=== PATIENT | female | born 1960 | race African-American/Black ===

== ENCOUNTER → 2017-09-05 | Outpatient (CLI) | payer MEDICARE | END | disposition home or self-care (01) | LOC: KCIC MRI 08:26 | DX: S83.241A Other tear of medial meniscus, current injury, right knee, initial encounter (principal); M22.41 Chondromalacia patellae, right knee; M25.461 Effusion, right knee; R60.0 Localized edema; X58.XXXA Exposure to other specified factors, initial encounter; Y93.89 Activity, other specified; Y92.89 Other specified places as the place of occurrence of the external cause; Y99.8 Other external cause status | CPT/HCPCS: 73721 ==

== ENCOUNTER 2017-10-14 19:24 | Emergency (ER) | payer MEDICARE ==
[2017-10-14 21:05] LABS: AGAP ISTAT 16 mmol/L (6-14); BUN ISTAT 10 mg/dL (8-26); CHLORIDE ISTAT 97 mmol/L (98-110); CREATININE ISTAT 0.7 mg/dL (0.5-1.4); GLUCOSE ISTAT 128 mg/dL (70-99); HEMATOCRIT ISTAT 42 % (36-40); HEMOGLOBIN ISTAT 14.3 g/dL (12-15); ION CA ISTAT 1.16 mmol/L (1.13-1.32); POTASSIUM ISTAT 3.6 mmol/L (3.5-5.0); SODIUM ISTAT 137 mmol/L (135-145); TOT CO2 ISTAT 28 mmol/L (23-32)
== END 2017-10-14 21:21 | disposition home or self-care (01) ==
LOC: ER 19:24
DX: S86.812A Strain of other muscle(s) and tendon(s) at lower leg level, left leg, initial encounter (principal); I10 Essential (primary) hypertension; Z88.1 Allergy status to other antibiotic agents; X58.XXXA Exposure to other specified factors, initial encounter; Y93.89 Activity, other specified; Y99.8 Other external cause status; Y92.89 Other specified places as the place of occurrence of the external cause
CPT/HCPCS: 36415; 80047; 85014; 85018; 93971; 99284-25

== ENCOUNTER → 2018-02-13 | Day surgery (SDC) | payer MEDICARE ==
[~2018-02-13] MED LIST: CLINDAMYCIN 600MG PREMIX 50 ML IV; DESFLURANE 31 TO 60 MINUTES IH; DEXAMETHASONE SOD PHOS 20 MG/5 ML VIAL.; FAMOTIDINE 20 MG/2 ML VIAL; LIDOCAINE 1% PF 2 ML VIAL. ID; LIDOCAINE 2% PF Vial for OR 5 ML VIAL.; MORPHINE SULFATE 2 MG/ML DISP.SYRIN. IV; ONDANSETRON PF 4 MG/2 ML VIAL.; ONDANSETRON PF 4 MG/2 ML VIAL. IV; PROCHLORPERAZINE 10 MG/2 ML VIAL. IV; PROPOFOL 20 ML IV; SEVOFLURANE > 120 MINUTES. IH; SUCCINYLCHOLINE 200 MG/10 ML VIAL.; ceFAZolin 2GM PREMIX 2 GM/50 ML BAG IV; fentaNYL PF VIAL 100 MCG/2 ML VIAL; fentaNYL PF VIAL 100 MCG/2 ML VIAL IV
[2018-02-13] MEDS: IV RINGERS,LACTATED 1000ML 1,000 ML IV (13:52)
[2018-02-13] MEDS: CLINDAMYCIN 900MG PREMIX 50 ML IV (15:53)
[2018-02-13] MEDS: BUPIVACAINE-EPI 0.25%-1:200000 50 ML VIAL. (16:08)
[2018-02-13] MEDS: EPINEPHrine VIAL 30 MG/30 ML VIAL (16:08)
[2018-02-13 16:59] LABS: ANION GAP 8 (6-14); BLOOD UREA NITROGEN 11 mg/dL (7-20); CALCIUM 9.5 mg/dL (8.5-10.1); CARBON DIOXIDE 30 mmol/L (21-32); CHLORIDE 101 mmol/L (98-107); CREATININE 0.7 mg/dL (0.6-1.0); GLUCOSE 82 mg/dL (70-99); POTASSIUM 3.2 mmol/L (3.5-5.1); SODIUM 139 mmol/L (136-145)
[2018-02-13] MEDS: fentaNYL PF VIAL 100 MCG/2 ML VIAL IV ×2 (17:17→17:35)
[2018-02-13] MEDS: HYDROcodone/APAP 7.5/325MG 1 TAB TABLET PO (18:06)
== END ==
LOC: SURG 13:00
DX: M23.341 Other meniscus derangements, anterior horn of lateral meniscus, right knee (principal); M23.351 Other meniscus derangements, posterior horn of lateral meniscus, right knee; M23.321 Other meniscus derangements, posterior horn of medial meniscus, right knee; M23.41 Loose body in knee, right knee; M94.261 Chondromalacia, right knee; I10 Essential (primary) hypertension; F41.9 Anxiety disorder, unspecified; F07.81 Postconcussional syndrome; M19.90 Unspecified osteoarthritis, unspecified site; E66.01 Morbid (severe) obesity due to excess calories; Z68.43 Body mass index [BMI] 50.0-59.9, adult; Z98.890 Other specified postprocedural states; Z88.1 Allergy status to other antibiotic agents; Z88.0 Allergy status to penicillin; Z90.710 Acquired absence of both cervix and uterus; Z79.899 Other long term (current) drug therapy; Z82.3 Family history of stroke; Z82.49 Family history of ischemic heart disease and other diseases of the circulatory system
CPT/HCPCS: 29880; 36415; 80048; A7015; J0171; J0330; J0690; J1100; J2001; J2405; J2704; J3010; J3490; S0028

== ENCOUNTER → 2018-06-08 | Outpatient (CLI) | payer MEDICARE ==
[2018-02-13 18:50] VITALS: BP 135/73
[~2018-06-08] MED LIST changes: +ALPR0.257 PO; +ASPI325T8 PO; +ASPI81TA50 PO; -CLINDAMYCIN 600MG PREMIX 50 ML IV; +CYAN100070 PO; -DESFLURANE 31 TO 60 MINUTES IH; -DEXAMETHASONE SOD PHOS 20 MG/5 ML VIAL.; -FAMOTIDINE 20 MG/2 ML VIAL; +FERR325C PO; -LIDOCAINE 1% PF 2 ML VIAL. ID; -LIDOCAINE 2% PF Vial for OR 5 ML VIAL.; +LORA5SOL43 PO; +MEDR10TA3 PO; +METO-269 PO; -MORPHINE SULFATE 2 MG/ML DISP.SYRIN. IV; +NAPR220T70 PO; -ONDANSETRON PF 4 MG/2 ML VIAL.; -ONDANSETRON PF 4 MG/2 ML VIAL. IV; +POLY500P13 MC; -PROCHLORPERAZINE 10 MG/2 ML VIAL. IV; -PROPOFOL 20 ML IV; -SEVOFLURANE > 120 MINUTES. IH; -SUCCINYLCHOLINE 200 MG/10 ML VIAL.; +TRIA1TAB5 PO; +[UNRECOGNIZED DRUG - CODE] PO; -ceFAZolin 2GM PREMIX 2 GM/50 ML BAG IV; -fentaNYL PF VIAL 100 MCG/2 ML VIAL; -fentaNYL PF VIAL 100 MCG/2 ML VIAL IV
--- NOTE | 2018-06-08 15:58 | RAD ---
Right Lower Extremity Venous Doppler Ultrasound Indication: Right knee arthroscopy. Right lower extremity pain and swelling. Comparison: None. Procedure: Color Doppler, spectral Doppler, and grayscale images with and without compression are obtained in the area of the common femoral vein, superficial femoral vein - femoral vein junction, main femoral vein (superficial femoral vein) and popliteal vein. Veins of the proximal calf are also imaged. Findings: There is normal duplex flow, color flow and compressibility of all visualized vein segments. There is no evidence of deep venous thrombosis. Impression: No evidence of right lower extremity deep venous thrombosis. Electronically signed by: Champ Steel MD (06/08/2018 3:55 PM) [place] [id number]
== END | disposition home or self-care (01) ==
LOC: US 14:36
PROVIDERS: ATTEND Orthopaedic Surgery
DX: M79.604 Pain in right leg (principal); R22.41 Localized swelling, mass and lump, right lower limb; Z98.890 Other specified postprocedural states
CPT/HCPCS: 93971

== ENCOUNTER → 2018-06-26 | Outpatient (CLI) | payer MEDICARE ==
[2018-02-13 18:50] VITALS: BP 135/73
[~2018-06-26] MED LIST changes: +CHOL20002 PO; -[UNRECOGNIZED DRUG - CODE] PO
--- NOTE | 2018-06-26 10:26 | KCIC ---
Examination: MRI of the right knee without contrast HISTORY: History of right knee pain COMPARISON: 09/05/2017 TECHNIQUE: Multiplanar, multisequence MR imaging of the right knee was performed without contrast FINDINGS: The anterior cruciate ligament, posterior cruciate ligament are intact. There is attenuated appearance of the body and posterior horn of the medial meniscus likely postsurgical changes. There is faint medial extrusion of the medial meniscus. There is attenuated appearance of the body of the lateral meniscus with the oblique increased olivarez signal in the posterior horn of the lateral meniscus, best visualized on series 6 image #20 again identified could be degenerative tear. The extensor mechanism is intact. Moderate knee joint effusion is identified There is complete cartilage loss identified in the weightbearing portion and the posterior flexion zone of the medial compartment. There is fissuring of cartilage identified in the weightbearing portion of the lateral compartment. There is fissuring of cartilage identified in the patellar femoral compartment. The medial, lateral retinaculum are intact. Faint increased T2 signal identified in the weightbearing portion of the medial tibial plateau and the lateral third tibial plateau likely trabecular edema. The medial collateral ligament is intact. The lateral collateral ligamentous complex including the fibular collateral ligament, biceps femoris tendon, popliteus tendon appear intact. Mild increased T2 signal identified about the lateral collateral ligamentous complex. Moderate joint space loss identified in the medial, lateral, patellofemoral compartments. There is a small 5 mm degenerative cyst or old osteochondral defect identified in the posterior medial condyle. IMPRESSION: 1. Attenuated appearance of the body and posterior horn of the medial meniscus probably postsurgical. There is faint medial extrusion of the medial meniscus. 2. There is attenuated appearance of the body of the lateral meniscus could be postsurgical with oblique increased signal identified in the posterior horn of the lateral meniscus could be degenerative. 3. Moderate knee joint effusion. 4. 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 Electronically signed by: Angel Chapa MD (06/26/2018 10:22 AM) [id number]
== END | disposition home or self-care (01) ==
LOC: KCIC MRI 07:41
PROVIDERS: ATTEND Orthopaedic Surgery
DX: M22.41 Chondromalacia patellae, right knee (principal); M25.461 Effusion, right knee; M17.11 Unilateral primary osteoarthritis, right knee
CPT/HCPCS: 73721

== ENCOUNTER 2018-09-24 18:37 | Observation (INO) | payer BC ==
[~2018-09-24] VITALS: Ht 160 cm; Wt 137.0 kg
[~2018-09-24 18:37] MED LIST changes: -POLY500P13 MC; +POLY500P13 PO
--- NOTE | 2018-09-24 20:24 | RAD ---
CHEST PA LATERAL CLINICAL INDICATION: palpitations COMPARISON: None FINDINGS: Heart is normal in size. Lungs are clear. No pneumothorax or pleural effusion. Visualized bony thorax within normal limits. IMPRESSION: No acute pulmonary process. Electronically signed by: Kal Mata DO (09/24/2018 8:21 PM) [facility]
[2018-09-24 20:37] LABS: BASO % 0 % (0-3); EOS # 0.1 x10^3/uL (0.0-0.7); EOS % 2 % (0-3); HEMATOCRIT 39.4 % (36.0-47.0); HEMOGLOBIN 12.6 g/dL (12.0-15.5); LYMPH # 1.7 x10^3/uL (1.0-4.8); LYMPH % 27 % (24-48); MEAN CORPUSCULAR HEMOGLOBIN 29 pg (25-35); MEAN CORPUSCULAR HGB CONC 32 g/dL (31-37); MEAN CORPUSCULAR VOLUME 90 fL (79-100); MONO # 0.6 x10^3/uL (0.0-1.1); MONO % 9 % (0-9); NEUT # 3.9 x10^3uL (1.8-7.7); NEUT % 61 % (31-73); PLATELET COUNT 379 x10^3/uL (140-400); WHITE BLOOD COUNT 6.3 x10^3/uL (4.0-11.0)
[2018-09-24 20:46] LABS: CALCIUM 9.9 mg/dL (8.5-10.1); CREATININE 0.6 mg/dL (0.6-1.0); GFR 123.8
[2018-09-24 20:52] LABS: ALBUMIN 4.2 g/dL (3.4-5.0); ALBUMIN/GLOBULIN RATIO 0.9 (1.0-1.7); MAGNESIUM 2.1 mg/dL (1.8-2.4); TOTAL BILIRUBIN 0.3 mg/dL (0.2-1.0)
[2018-09-24] MEDS ORDERED: MORPHINE SULFATE 4 MG/ML VIAL. IV PRN (21:00)
[2018-09-24] MEDS ORDERED: ONDANSETRON PF 4 MG/2 ML VIAL. IV PRN (21:00)
[2018-09-24 21:14] LABS: BILIRUBIN,URINE NEGATIVE (NEG); CLARITY,URINE CLEAR; COLOR,URINE YELLOW; NITRITE,URINE NEGATIVE (NEG); PH,URINE 6.5; PROTEIN,URINE NEGATIVE (NEG-TRACE)
[2018-09-24 21:19] LABS: BACTERIA,URINE FEW /HPF (0-FEW); RBC,URINE 0 /HPF (0-2); SQUAMOUS EPITHELIAL CELL,UR OCC /LPF; WBC,URINE OCC /HPF (0-4)
[2018-09-24 22:23] VITALS: BP 151/73
[2018-09-24] MEDS ORDERED: FERR325T14 PO (22:45)
[2018-09-24] MEDS ORDERED: ALPRAZolam 0.25 MG TABLET PO PRN (23:15)
[2018-09-24] MEDS ORDERED: METOPROLOL SUCCINATE 50 MG PO SCH (23:30)
[2018-09-24] MEDS: IV NORMAL SALINE 1000ML BAG 1,000 ML IV SCH (23:41)
--- NOTE | 2018-09-25 00:28 | NUR ---
Patient admission Pt arrived to the unit at approximately 2223 via w/c from the ED. Pt's mother at bedside. Pt was oriented to room and unit routines. Patient information guide packet was explained and given to pt. All questions and concerns regarding pt's POC was address and answered. Pt made comfortable in bed. Will continue to monitor pt closely.
[2018-09-25] MEDS: IV NORMAL SALINE 1000ML BAG 1,000 ML IV SCH ×3 (01:02→08:21)
--- NOTE | 2018-09-25 01:13 | PHYS DOC ---
Past Medical History Past Medical History: Hypertension Past Surgical History: Additional Past Surgical Histo: FOOT SX Alcohol Use: None Drug Use: None Adult General Chief Complaint Chief Complaint: Palpitations HPI HPI Patient is a 58 year old female who presents with a feeling of palpitations at home. The patient states that she was using her wrist blood pressure cuff and it kept giving her an error saying that she was having an irregular heart rhythm. The patient states that she has had what she is calling palpitations in the past. On the monitor when she's having that feeling it is showing a PVC. She denies any new medications. She states that she takes metoprolol. 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 She denies chest pain or shortness of air but states that she has been having fatigue recently. Review of Systems Review of Systems Constitutional: Denies fever or chills [] Eyes: Denies change in visual acuity, redness, or eye pain [] HENT: Denies nasal congestion or sore throat [] Respiratory: Denies cough or shortness of breath [] Cardiovascular: No additional information not addressed in HPI [] GI: Denies abdominal pain, nausea, vomiting, bloody stools or diarrhea [] : Denies dysuria or hematuria [] Musculoskeletal: Denies back pain or joint pain [] Integument: Denies rash or skin lesions [] Neurologic: Denies headache, focal weakness or sensory changes [] Endocrine: Denies polyuria or polydipsia [] All other systems were reviewed and found to be within normal limits, except as documented in this note. Allergies Allergies Allergies Coded Allergies Type Severity Reaction Last Updated Verified amoxicillin Adverse Reaction Intermediate Diarrhea 02/13/18 Yes Physical Exam Physical Exam Constitutional: Well developed, well nourished, no acute distress, non-toxic appearance. [] HENT: Normocephalic, atraumatic, bilateral external ears normal, oropharynx moist, no oral exudates, nose normal. [] Eyes: PERRLA, EOMI, conjunctiva normal, no discharge. [] Neck: Normal range of motion, no tenderness, supple, no stridor. [] Cardiovascular:Heart rate regular rhythm with PVCs noted, no murmur [] Lungs & Thorax: Bilateral breath sounds clear to auscultation [] Abdomen: Bowel sounds normal, soft, no tenderness, no masses, no pulsatile masses. [] Skin: Warm, dry, no erythema, no rash. [] Back: No tenderness, no CVA tenderness. [] Extremities: No tenderness, no cyanosis, no clubbing, ROM intact, no edema. [] Neurologic: Alert and oriented X 3, normal motor function, normal sensory function, no focal deficits noted. [] Psychologic: Affect normal, judgement normal, mood normal. [] Current Patient Data Vital Signs Vital Signs Date Time Temp Pulse Resp B/P (MAP) Pulse Ox O2 Delivery O2 Flow Rate FiO2 09/24/18 20:39 72 18 146/67 (93) 97 Room Air 09/24/18 19:19 98.6 98.6 Lab Values Laboratory Tests Test 09/24/18 20:26 White Blood Count 6.3 x10^3/uL (4.0-11.0) Red Blood Count 4.40 x10^6/uL (3.50-5.40) Hemoglobin 12.6 g/dL (12.0-15.5) Hematocrit 39.4 % (36.0-47.0) Mean Corpuscular Volume 90 fL (79-100) Mean Corpuscular Hemoglobin 29 pg (25-35) Mean Corpuscular Hemoglobin Concent 32 g/dL (31-37) Red Cell Distribution Width 15.0 % (11.5-14.5) H Platelet Count 379 x10^3/uL (140-400) Neutrophils (%) (Auto) 61 % (31-73) Lymphocytes (%) (Auto) 27 % (24-48) Monocytes (%) (Auto) 9 % (0-9) Eosinophils (%) (Auto) 2 % (0-3) Basophils (%) (Auto) 0 % (0-3) Neutrophils # (Auto) 3.9 x10^3uL (1.8-7.7) Lymphocytes # (Auto) 1.7 x10^3/uL (1.0-4.8) Monocytes # (Auto) 0.6 x10^3/uL (0.0-1.1) Eosinophils # (Auto) 0.1 x10^3/uL (0.0-0.7) Basophils # (Auto) 0.0 x10^3/uL (0.0-0.2) Urine Color Yellow Urine Clarity Clear Urine pH 6.5 Urine Specific [place] 1.015 Urine Protein Negative mg/dL (NEG-TRACE) Urine Glucose (UA) Negative mg/dL (NEG) Urine Ketones (Stick) Negative mg/dL (NEG) Urine Blood Negative (NEG) Urine Nitrite Negative (NEG) Urine Bilirubin Negative (NEG) Urine Urobilinogen Dipstick 1.0 mg/dL (0.2 mg/dL) Urine Leukocyte Esterase Negative (NEG) Urine RBC 0 /HPF (0-2) Urine WBC Occ /HPF (0-4) Urine Squamous Epithelial Cells Occ /LPF Urine Bacteria Few /HPF (0-FEW) Urine Mucus Slight /LPF Sodium Level 141 mmol/L (136-145) Potassium Level 4.0 mmol/L (3.5-5.1) Chloride Level 100 mmol/L (98-107) Carbon Dioxide Level 29 mmol/L (21-32) Anion Gap 12 (6-14) Blood Urea Nitrogen 13 mg/dL (7-20) Creatinine 0.6 mg/dL (0.6-1.0) Estimated GFR (Cockcroft-Gault) 123.8 BUN/Creatinine Ratio 22 (6-20) H Glucose Level 98 mg/dL (70-99) Calcium Level 9.9 mg/dL (8.5-10.1) Magnesium Level 2.1 mg/dL (1.8-2.4) Total Bilirubin 0.3 mg/dL (0.2-1.0) Aspartate Amino Transferase (AST) 20 U/L (15-37) Alanine Aminotransferase (ALT) 22 U/L (14-59) Alkaline Phosphatase 92 U/L (46-116) Creatine Kinase 142 U/L (26-192) Creatine Kinase MB (Mass) 1.4 ng/mL (0.0-3.6) Creatine Kinase MB Relative Index 1.0 % (0-4) Troponin I Quantitative < 0.017 ng/mL (0.000-0.055) Total Protein 9.0 g/dL (6.4-8.2) H Albumin 4.2 g/dL (3.4-5.0) Albumin/Globulin Ratio 0.9 (1.0-1.7) L Laboratory Tests 09/24/18 20:26 Laboratory Tests 09/24/18 20:26 EKG EKG [] Radiology/Procedures Radiology/Procedures [] Course & Med Decision Making Course & Med Decision Making Pertinent Labs and Imaging studies reviewed. (See chart for details) []The patient is being admitted to Dr. Wade's service observation for serial testing and a consultation with cardiology. Dragon Disclaimer Dragon Disclaimer This electronic medical record was generated, in whole or in part, using a voice recognition dictation system. Departure Departure Impression: Primary Impression: Palpitations Additional Impression: Fatigue Disposition: 09 ADMITTED INPATIENT Condition: GOOD Referrals: ALEKSEY NUNEZ (PCP) Problem Qualifiers NORMA BIRD APRN Sep 25, 2018 01:13
[2018-09-25 03:00] VITALS: BP 115/55
--- NOTE | 2018-09-25 05:39 | NUR ---
Pt's schedule 0530 NS was not administered at this time due to current bag still infusing.
[2018-09-25 06:01] LABS: CHOLESTEROL/HDL RATIO 3.2
[2018-09-25 07:00] VITALS: BP 117/60
[2018-09-25] MEDS ORDERED: CYANOCOBALAMIN (VITAMIN B-12) 1,000 MCG TABLET. PO SCH (09:00)
[2018-09-25] MEDS ORDERED: POLYETHYLENE GLYCOL 3350 17 GM PACKET. PO SCH (09:00)
[2018-09-25] MEDS ORDERED: TRIAMTERENE/HCTZ 37.5/25MG TABLET. PO SCH (09:00)
[2018-09-25] MEDS ORDERED: FERROUS SULFATE 325 MG TABLET. PO SCH (09:00)
[2018-09-25] MEDS ORDERED: CHOLECALCIFEROL (VITAMIN D3) 1,000 UNIT TABLET PO SCH (09:00)
--- NOTE | 2018-09-25 09:49 | PDOC1 ---
History and Physical Date of Admission Date of Admission DATE: 09/25/18 TIME: 09:49 Source Source: Chart review, Patient History of Present Illness History of Present Illness Ms Rob is a 58 year old female who presents with a feeling of palpitations at home. The patient states that she was using her wrist blood pressure cuff and it kept giving her an error saying that she was having an irregular heart rhythm. The patient states that she has had what she is calling palpitations in the past. On the monitor when she's having that feeling it is showing a PVC. She denies any new medications. She states that she takes metoprolol. She states that she was worked up by her website developer in the past and had a stress test and wore a monitor. She denies chest pain or shortness of air but states that she has been having fatigue recently. Past Medical History Cardiovascular: HTN, Other (palpitations) Psych: Anxiety Musculoskeletal: Osteoarthritis (right knee pain) Endocrine: No pertinent hx Family History Family History: Hypertension, Stroke Social History Smoke: No ALCOHOL: none Drugs: None Current Problem List Problem List Problems Medical Problems: (1) Palpitations Status: Acute Current Medications Current Medications Current Medications Ondansetron HCl (Zofran) 4 mg PRN Q8HRS PRN IV NAUSEA/VOMITING 1ST CHOICE; Start 09/24/18 at 21:00; Stop 09/25/18 at 20:59 Morphine Sulfate (Morphine Sulfate) 4 mg PRN Q2HR PRN IV SEVERE PAIN; Start at 21:00; Stop 09/25/18 at 20:59 Sodium Chloride 1,000 ml @ 125 mls/hr Q8H IV Last administered on 09/25/18at 08: 21; Start 09/24/18 at 21:30; Stop 09/25/18 at 21:29 Ferrous Sulfate (Feosol) 325 mg DAILY PO ; Start 09/25/18 at 09:00 Alprazolam (Xanax) 0.25 mg PRN DAILY PRN PO ANXIETY / AGITATION Last administered on 09/25/18at 01:00; Start 09/24/18 at 23:15 Vitamin D (Vitamin D3) 1,000 unit DAILY PO ; Start 09/25/18 at 09:00 Cyanocobalamin (Vitamin B-12) 1,000 mcg DAILY PO ; Start 09/25/18 at 09:00 Polyethylene Glycol (miraLAX PACKET) 17 gm DAILY PO ; Start 09/25/18 at 09:00 Triamterene/HCTZ (Maxzide 37.5/ 25mg) 2 tab DAILY PO ; Start 09/25/18 at 09:00 Non-Formulary Medication (Metoprolol Succinate (Toprol Xl)) 50 mg HS PO ; Start 09/25/18 at 21:00; Stop 09/25/18 at 21:00; Status DC Non-Formulary Medication (Metoprolol Succinate (Toprol Xl)) 50 mg HS PO Last administered on 09/24/18at 23:38; Start 09/24/18 at 23:30 Active Scripts Active Reported Ferrous Sulfate 325 Mg Tablet 1 Tab PO DAILY Vitamin D (Cholecalciferol (Vitamin D3)) 2,000 Unit Tablet 1,000 Unit PO DAILY Vitamin B-12 (Cyanocobalamin (Vitamin B-12)) 1,000 Mcg Tablet.er 1,000 Mcg PO DAILY Triamterene-Hctz 75-50 Mg Tab (Triamterene/Hydrochlorothiazid) 1 Each Tablet 1 Each PO DAILY Toprol Xl (Metoprolol Succinate) 50 Mg Tab.er.24h 50 Mg PO HS Polyethylene Glycol (Polyethylene Glycol 1000) 500 Gm Powder 17 Gm PO DAILY Alprazolam 0.25 Mg Tab.rapdis 0.25 Mg PO PRN DAILY Allergies Allergies: Coded Allergies: No Known Medication Allergies (Verified Allergy, Unknown, 09/25/18) amoxicillin (Verified Adverse Reaction, Intermediate, Diarrhea, 02/13/18) ROS General: YES: Fatigue; No: Chills, Night Sweats, Malaise, Appetite, Other PSYCHOLOGICAL ROS: YES: Anxiety, Irritablity, Sleep disturbances HEENT: No: Heacaches, Visual Changes, Hearing change, Nasal congestion, Nasal discharge, Oral lesions, Sinus pain, Sore Throat, Epistaxis, Sneezing, Snoring, Tinnitus, Vertigo, Vocal changes, Other Hematological and Lymphatic: No: Bleeding Problems, Blood Clots, Blood Transfusions, Brusing, Night Sweats, Pallor, Swollen Lymph Nodes, Other Respiratory: YES: Shortness of breath, SOB with excertion; No: Cough, Hemoptysis, Orthopnea, Pleuritic Pain, Sputum Changes, Stridor, Tachypnea, Wheezing, Other Cardiovascular: yes Palpitations; No Chest Pain, No Orthopnea, No Paroxysmal Noc. Dyspnea, No Edema, No Lt Headedness, No Other Gastrointestinal: No Nausea, No Vomiting, No Abdominal Pain, No Diarrhea, No Constipation, No Melena, No Hematochezia, No Other Genitourinary: No Dysuria, No Frequency, No Incontinence, No Hematuria, No Retention, No Discharge, No Urgency, No Pain, No Flank Pain, No Other, No , No , No , No , No , No , No Musculoskeletal: Yes Gait Disturbance, Yes Joint Pain, Yes Joint Stiffness, Yes Pain In: Neurological: No Behavorial Changes, No Bowel/Bladder ControlChng, No Confusion , No Dizziness, No Gait Disturbance, No Headaches, No Impaired Coord/balance, No Memory Loss, No Numbness/Tingling, No Seizures, No Speech Problems, No Tremors, No Visual Changes, No Weakness, No Other Skin: No Dry Skin, No Eczema, No Hair Changes, No Lumps, No Mole Changes, No Mottling, No Nail Changes, No Pruritus, No Rash, No Skin Lesion Changes, No Other, No Acne Physical Exam General: Alert, Oriented X3, Cooperative, No acute distress HEENT: Atraumatic, PERRLA, Mucous membr. moist/pink Lungs: Clear to auscultation, Normal air movement Heart: S1S2, no gallops, no murmurs Abdomen: Normal bowel sounds (obese), Soft Extremities: No cyanosis Skin: No rashes Vitals Vitals Vital Signs Date Time Temp Pulse Resp B/P (MAP) Pulse Ox O2 Delivery O2 Flow Rate FiO2 09/25/18 07:00 98.2 60 18 117/60 (79) 98 Room Air 98.2 Labs Labs Laboratory Tests Test 09/24/18 20:26 09/25/18 00:05 09/25/18 03:00 White Blood Count 6.3 x10^3/uL (4.0-11.0) Red Blood Count 4.40 x10^6/uL (3.50-5.40) Hemoglobin 12.6 g/dL (12.0-15.5) Hematocrit 39.4 % (36.0-47.0) Mean Corpuscular Volume 90 fL (79-100) Mean Corpuscular Hemoglobin 29 pg (25-35) Mean Corpuscular Hemoglobin Concent 32 g/dL (31-37) Red Cell Distribution Width 15.0 % (11.5-14.5) Platelet Count 379 x10^3/uL (140-400) Neutrophils (%) (Auto) 61 % (31-73) Lymphocytes (%) (Auto) 27 % (24-48) Monocytes (%) (Auto) 9 % (0-9) Eosinophils (%) (Auto) 2 % (0-3) Basophils (%) (Auto) 0 % (0-3) Neutrophils # (Auto) 3.9 x10^3uL (1.8-7.7) Lymphocytes # (Auto) 1.7 x10^3/uL (1.0-4.8) Monocytes # (Auto) 0.6 x10^3/uL (0.0-1.1) Eosinophils # (Auto) 0.1 x10^3/uL (0.0-0.7) Basophils # (Auto) 0.0 x10^3/uL (0.0-0.2) Urine Color Yellow Urine Clarity Clear Urine pH 6.5 Urine Specific [place] 1.015 Urine Protein Negative mg/dL (NEG-TRACE) Urine Glucose (UA) Negative mg/dL (NEG) Urine Ketones (Stick) Negative mg/dL (NEG) Urine Blood Negative (NEG) Urine Nitrite Negative (NEG) Urine Bilirubin Negative (NEG) Urine Urobilinogen Dipstick 1.0 mg/dL (0.2 mg/dL) Urine Leukocyte Esterase Negative (NEG) Urine RBC 0 /HPF (0-2) Urine WBC Occ /HPF (0-4) Urine Squamous Epithelial Cells Occ /LPF Urine Bacteria Few /HPF (0-FEW) Urine Mucus Slight /LPF Sodium Level 141 mmol/L (136-145) Potassium Level 4.0 mmol/L (3.5-5.1) Chloride Level 100 mmol/L (98-107) Carbon Dioxide Level 29 mmol/L (21-32) Anion Gap 12 (6-14) Blood Urea Nitrogen 13 mg/dL (7-20) Creatinine 0.6 mg/dL (0.6-1.0) Estimated GFR (Cockcroft-Gault) 123.8 BUN/Creatinine Ratio 22 (6-20) Glucose Level 98 mg/dL (70-99) Calcium Level 9.9 mg/dL (8.5-10.1) Magnesium Level 2.1 mg/dL (1.8-2.4) Total Bilirubin 0.3 mg/dL (0.2-1.0) Aspartate Amino Transf (AST/SGOT) 20 U/L (15-37) Alanine Aminotransferase (ALT/SGPT) 22 U/L (14-59) Alkaline Phosphatase 92 U/L (46-116) Creatine Kinase 142 U/L (26-192) Creatine Kinase MB (Mass) 1.4 ng/mL (0.0-3.6) Creatine Kinase MB Relative Index 1.0 % (0-4) Troponin I Quantitative < 0.017 ng/mL (0.000-0.055) < 0.017 ng/mL (0.000-0.055) < 0.017 ng/mL (0.000-0.055) Total Protein 9.0 g/dL (6.4-8.2) Albumin 4.2 g/dL (3.4-5.0) Albumin/Globulin Ratio 0.9 (1.0-1.7) Triglycerides Level 47 mg/dL (0-150) Cholesterol Level 199 mg/dL (0-200) LDL Cholesterol, Calculated 127 mg/dL (0-100) VLDL Cholesterol, Calculated 9 mg/dL (0-40) Non-HDL Cholesterol Calculated 136 mg/dL (0-129) HDL Cholesterol 63 mg/dL (40-60) Cholesterol/HDL Ratio 3.2 Laboratory Tests Test 09/24/18 20:26 09/25/18 00:05 09/25/18 03:00 White Blood Count 6.3 x10^3/uL (4.0-11.0) Red Blood Count 4.40 x10^6/uL (3.50-5.40) Hemoglobin 12.6 g/dL (12.0-15.5) Hematocrit 39.4 % (36.0-47.0) Mean Corpuscular Volume 90 fL (79-100) Mean Corpuscular Hemoglobin 29 pg (25-35) Mean Corpuscular Hemoglobin Concent 32 g/dL (31-37) Red Cell Distribution Width 15.0 % (11.5-14.5) Platelet Count 379 x10^3/uL (140-400) Neutrophils (%) (Auto) 61 % (31-73) Lymphocytes (%) (Auto) 27 % (24-48) Monocytes (%) (Auto) 9 % (0-9) Eosinophils (%) (Auto) 2 % (0-3) Basophils (%) (Auto) 0 % (0-3) Neutrophils # (Auto) 3.9 x10^3uL (1.8-7.7) Lymphocytes # (Auto) 1.7 x10^3/uL (1.0-4.8) Monocytes # (Auto) 0.6 x10^3/uL (0.0-1.1) Eosinophils # (Auto) 0.1 x10^3/uL (0.0-0.7) Basophils # (Auto) 0.0 x10^3/uL (0.0-0.2) Urine Color Yellow Urine Clarity Clear Urine pH 6.5 Urine Specific [place] 1.015 Urine Protein Negative mg/dL (NEG-TRACE) Urine Glucose (UA) Negative mg/dL (NEG) Urine Ketones (Stick) Negative mg/dL (NEG) Urine Blood Negative (NEG) Urine Nitrite Negative (NEG) Urine Bilirubin Negative (NEG) Urine Urobilinogen Dipstick 1.0 mg/dL (0.2 mg/dL) Urine Leukocyte Esterase Negative (NEG) Urine RBC 0 /HPF (0-2) Urine WBC Occ /HPF (0-4) Urine Squamous Epithelial Cells Occ /LPF Urine Bacteria Few /HPF (0-FEW) Urine Mucus Slight /LPF Sodium Level 141 mmol/L (136-145) Potassium Level 4.0 mmol/L (3.5-5.1) Chloride Level 100 mmol/L (98-107) Carbon Dioxide Level 29 mmol/L (21-32) Anion Gap 12 (6-14) Blood Urea Nitrogen 13 mg/dL (7-20) Creatinine 0.6 mg/dL (0.6-1.0) Estimated GFR (Cockcroft-Gault) 123.8 BUN/Creatinine Ratio 22 (6-20) Glucose Level 98 mg/dL (70-99) Calcium Level 9.9 mg/dL (8.5-10.1) Magnesium Level 2.1 mg/dL (1.8-2.4) Total Bilirubin 0.3 mg/dL (0.2-1.0) Aspartate Amino Transf (AST/SGOT) 20 U/L (15-37) Alanine Aminotransferase (ALT/SGPT) 22 U/L (14-59) Alkaline Phosphatase 92 U/L (46-116) Creatine Kinase 142 U/L (26-192) Creatine Kinase MB (Mass) 1.4 ng/mL (0.0-3.6) Creatine Kinase MB Relative Index 1.0 % (0-4) Troponin I Quantitative < 0.017 ng/mL (0.000-0.055) < 0.017 ng/mL (0.000-0.055) < 0.017 ng/mL (0.000-0.055) Total Protein 9.0 g/dL (6.4-8.2) Albumin 4.2 g/dL (3.4-5.0) Albumin/Globulin Ratio 0.9 (1.0-1.7) Triglycerides Level 47 mg/dL (0-150) Cholesterol Level 199 mg/dL (0-200) LDL Cholesterol, Calculated 127 mg/dL (0-100) VLDL Cholesterol, Calculated 9 mg/dL (0-40) Non-HDL Cholesterol Calculated 136 mg/dL (0-129) HDL Cholesterol 63 mg/dL (40-60) Cholesterol/HDL Ratio 3.2 VTE Prophylaxis Ordered VTE Prophylaxis Devices: Yes VTE Pharmacological Prophylaxi: Yes Assessment/Plan Assessment/Plan palpitations acute dyspnea yesterday poss transient acute on chronic diastolic CHF anxiety disorder may factor morbid obesity, BMI 54 right knee pain, torn meniscus surg last year, still painful obs JENNIFER DIEHL MD Sep 25, 2018 09:49
--- NOTE | 2018-09-25 10:45 | EKG ---
[facility] [address] [place] [address] Test Date: 2018-09-24 Test Time: 19:18:36 Pat Name: SUZETTE BUSTOS Department: Room: [facility] Gender: F Support Coordinator: : 1960 Requested By: NORMA BIRD Order Number: [id number] Reading MD: Tato Henriquez MD Measurements Intervals [place] Rate: 75 P: 28 MT: 196 QRS: 15 QRSD: 86 T: 5 QT: 386 QTc: 434 Interpretive Statements SINUS RHYTHM PVC Electronically Signed On 09-29-2018 7:57:53 WATCH AND CLOCK REPAIR CLERK by Tato Henriquez MD
[2018-09-25 11:00] VITALS: BP 122/62
--- NOTE | 2018-09-25 12:20 | PDOC2 ---
FIDELINA HITCHCOCK CLINCHING MACHINE OPERATOR 09/25/18 1220: CARDIAC CONSULT DATE OF CONSULT Date of Consult DATE: 09/25/18 TIME: 12:13 REASON FOR CONSULT Reason for Consult: palpitations REFERRING PHYSICIAN Referring Physician: Dr. Hannah SOURCE Source: Chart review, Patient HISTORY OF PRESENT ILLNESS HISTORY OF PRESENT ILLNESS This is a 58 yo female, with a history of palpitations, who presented secondary to irregular heart beat reading on home BP monitor. Patient reports she present to have blood pressure and heart rhythm check, was not planning to be admitted. Patient reports feeling frequent palpitations on Friday. Was associated with SOA. No dizziness, syncope, diaphoresis, chest pain, or nausea/vomiting. [place] better on Friday and Friday. On began feeling frequent palpitations again. Was not SOA. Check blood pressure with wrist monitor multiple times, which continued to display irregular heart rhythm. Called office who recommend to replace batteries of device. Mother also check HR/blood pressure and irregular heart rhythm was not displayed. Patient was concerned so she decided to go to the ED to have BP and heart rhythm checked. Has been seen in our office due to palpitations. Recent event monitor and MPI were unremarkable. Reports having sleep study in 2014; CPAP was not recommended. PAST MEDICAL HISTORY Cardiovascular: HTN, Other (palpitations) Pulmonary: No pertinent hx CENTRAL NERVOUS SYSTEM: Other Heme/Onc: Anemia NOS Hepatobiliary: No pertinent hx Psych: Anxiety Musculoskeletal: Osteoarthritis Infectious disease: No pertinent hx ENT: No pertinent hx Renal/: No pertinent hx Endocrine: Other (obesity ) Dermatology: No pertinent hx PAST SURGICAL HISTORY Past Surgical History: Total knee replacement (right ), Other (uterine ablation ) FAMILY HISTORY Family History: Heart Disease, High Cholestrol, Hypertension, Stroke, Other ( AFIB) SOCIAL HISTORY Smoke: No ALCOHOL: none Drugs: None Lives: with Family CURRENT MEDICATIONS CURRENT MEDICATIONS Current Medications Medications (Trade) Dose Ordered Sig/Aj Route PRN Reason Start Time Stop Time Status Last Admin Dose Admin Sodium Chloride 1,000 ml @ 125 mls/hr Q8H IV 09/24/18 21:30 09/25/18 21:29 09/25/18 08:21 Alprazolam (Xanax) 0.25 mg PRN DAILY PRN PO ANXIETY / AGITATION 09/24/18 23:15 09/25/18 01:00 Non-Formulary Medication (Metoprolol Succinate (Toprol Xl)) 50 mg HS PO 09/24/18 23:30 09/24/18 23:38 ALLERGIES ALLERGIES: Coded Allergies: No Known Medication Allergies (Verified Allergy, Unknown, 09/25/18) amoxicillin (Verified Adverse Reaction, Intermediate, Diarrhea, 02/13/18) ROS Review of System 14 point ROS conducted with pertinent positives noted above in HPI. PHYSICAL EXAM General: Alert, Oriented X3, Cooperative, No acute distress HEENT: Atraumatic, Mucous membr. moist/pink Lungs: Normal air movement Heart: Regular rate (SR with PAC's and PVCs), Normal S1, Normal S2, No murmurs Abdomen: Soft, No tenderness Extremities: No edema, Normal pulses Skin: No significant lesion Neuro: Normal speech, Sensation intact Psych/Mental Status: Mental status NL, Mood NL MUSCULOSKELETAL: No deformity VITALS VITALS Vital Signs Date Time Temp Pulse Resp B/P (MAP) Pulse Ox O2 Delivery O2 Flow Rate FiO2 09/25/18 11:00 98.2 62 17 122/62 (82) 97 Room Air 98.2 LABS Lab: Laboratory Tests Test 09/24/18 20:26 09/25/18 00:05 09/25/18 03:00 White Blood Count 6.3 x10^3/uL (4.0-11.0) Red Blood Count 4.40 x10^6/uL (3.50-5.40) Hemoglobin 12.6 g/dL (12.0-15.5) Hematocrit 39.4 % (36.0-47.0) Mean Corpuscular Volume 90 fL (79-100) Mean Corpuscular Hemoglobin 29 pg (25-35) Mean Corpuscular Hemoglobin Concent 32 g/dL (31-37) Red Cell Distribution Width 15.0 % (11.5-14.5) Platelet Count 379 x10^3/uL (140-400) Neutrophils (%) (Auto) 61 % (31-73) Lymphocytes (%) (Auto) 27 % (24-48) Monocytes (%) (Auto) 9 % (0-9) Eosinophils (%) (Auto) 2 % (0-3) Basophils (%) (Auto) 0 % (0-3) Neutrophils # (Auto) 3.9 x10^3uL (1.8-7.7) Lymphocytes # (Auto) 1.7 x10^3/uL (1.0-4.8) Monocytes # (Auto) 0.6 x10^3/uL (0.0-1.1) Eosinophils # (Auto) 0.1 x10^3/uL (0.0-0.7) Basophils # (Auto) 0.0 x10^3/uL (0.0-0.2) Urine Color Yellow Urine Clarity Clear Urine pH 6.5 Urine Specific [place] 1.015 Urine Protein Negative mg/dL (NEG-TRACE) Urine Glucose (UA) Negative mg/dL (NEG) Urine Ketones (Stick) Negative mg/dL (NEG) Urine Blood Negative (NEG) Urine Nitrite Negative (NEG) Urine Bilirubin Negative (NEG) Urine Urobilinogen Dipstick 1.0 mg/dL (0.2 mg/dL) Urine Leukocyte Esterase Negative (NEG) Urine RBC 0 /HPF (0-2) Urine WBC Occ /HPF (0-4) Urine Squamous Epithelial Cells Occ /LPF Urine Bacteria Few /HPF (0-FEW) Urine Mucus Slight /LPF Sodium Level 141 mmol/L (136-145) Potassium Level 4.0 mmol/L (3.5-5.1) Chloride Level 100 mmol/L (98-107) Carbon Dioxide Level 29 mmol/L (21-32) Anion Gap 12 (6-14) Blood Urea Nitrogen 13 mg/dL (7-20) Creatinine 0.6 mg/dL (0.6-1.0) Estimated GFR (Cockcroft-Gault) 123.8 BUN/Creatinine Ratio 22 (6-20) Glucose Level 98 mg/dL (70-99) Calcium Level 9.9 mg/dL (8.5-10.1) Magnesium Level 2.1 mg/dL (1.8-2.4) Total Bilirubin 0.3 mg/dL (0.2-1.0) Aspartate Amino Transf (AST/SGOT) 20 U/L (15-37) Alanine Aminotransferase (ALT/SGPT) 22 U/L (14-59) Alkaline Phosphatase 92 U/L (46-116) Creatine Kinase 142 U/L (26-192) Creatine Kinase MB (Mass) 1.4 ng/mL (0.0-3.6) Creatine Kinase MB Relative Index 1.0 % (0-4) Troponin I Quantitative < 0.017 ng/mL (0.000-0.055) < 0.017 ng/mL (0.000-0.055) < 0.017 ng/mL (0.000-0.055) Total Protein 9.0 g/dL (6.4-8.2) Albumin 4.2 g/dL (3.4-5.0) Albumin/Globulin Ratio 0.9 (1.0-1.7) Triglycerides Level 47 mg/dL (0-150) Cholesterol Level 199 mg/dL (0-200) LDL Cholesterol, Calculated 127 mg/dL (0-100) VLDL Cholesterol, Calculated 9 mg/dL (0-40) Non-HDL Cholesterol Calculated 136 mg/dL (0-129) HDL Cholesterol 63 mg/dL (40-60) Cholesterol/HDL Ratio 3.2 ECHOCARDIOGRAM ECHOCARDIOGRAM <Conclusion> The left ventricle is normal size. The left ventricular systolic function is normal and the ejection fraction is within normal range. The Ejection Fraction is 55-60%. There is no significant aortic valvular stenosis. Doppler and Color Flow revealed trace aortic regurgitation. Doppler and Color-flow revealed mild mitral regurgitation. Doppler and Color Flow revealed mild tricuspid regurgitation. The PA pressure was estimated at 35 mmHg. There is no evidence of significant pericardial effusion. DATE: 11/24/14 1759 STRESS TEST STRESS TEST Conclusion 1. Treadmill exercise cardioisotope stress test did not show any evidence of ischemia or infarct. 2. Normal left ventricular systolic function with ejection fraction calculated at 81%. 3. Patient had good activity tolerance. Low risk for cardiac events. DATE: 06/26/18 1148 ASSESSMENT/PLAN ASSESSMENT/PLAN 1. Palpitations; having intermittent PAC's and PVC's. Recent event monitor without significant arrhythmias. Recent MPI without evidence of ischemia. 2. Hypertension; controlled 3. Dyslipidemia 4. Obesity 5. 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 If no significant valvular disease noted on echo, will start flecainide 50mg BID for rhythm maintenance and decrease Toprol to 25mg daily Supportive care BILLY MENJIVAR MD 09/25/186: CARDIAC CONSULT ASSESSMENT/PLAN ASSESSMENT/PLAN Patient seen and examined. Agree with above nurse practitioner note. She is well-known to our service. She has frequent PACs and PVCs but recent monitoring did not reveal any significant pathology. We will plan for initiation of flecainide therapy. If this does not improve her symptoms in 1-2 weeks then we could consider initiation of other therapies. If she fails to drugs could then consider EP referral. Patient understands risks and benefits of various approaches. Wishes to initially continue conservative management with beta reji and flecainide therapy. Follow-up in the office. FIDELINA HITCHCOCK APRN Sep 25, 2018 12:20 BILLY MENJIVAR MD Sep 25, 2018 18:16
[2018-09-25 15:00] VITALS: BP 128/67
[2018-09-25] MEDS ORDERED: PERFLUTREN PROTEIN-A MICROSPHR 0.22 MG/ML 3 ML VIAL. IV PRN (15:15)
[2018-09-25] MEDS ORDERED: PERFLUTREN PROTEIN-A MICROSPHR 0.22 MG/ML 3 ML VIAL. IV ONE ×2 (15:43→16:00)
--- NOTE | 2018-09-25 16:11 | CARD ---
MR#: [id number] Date of Study: 09/25/2018 Ordering Physician: FIDELINA HITCHCOCK, Referring Physician: ALEXA TURNER Tech: Denise Lucero RDCS APPROVED REPORT EXAM: Two-dimensional and M-mode echocardiogram with Doppler, color Doppler with contrast. Other Information Quality : Technically LimitedHR: 70bpm Rhythm : NSRTechnically limited study due to body habitus. INDICATION Palpitations Echo Enhancing Agent Indication: Endocardial border delineation Agent/Amount Used: Optison 1mL 2D DIMENSIONS RVDd3.6 (2.9-3.5cm)Left Atrium(2D)4.5 (1.6-4.0cm) IVSd1.2 (0.7-1.1cm)Aortic Root(2D)2.9 (2.0-3.7cm) LVDd4.8 (3.9-5.9cm)LVOT Diameter2.0 (1.8-2.4cm) PWd1.5 (0.7-1.1cm)LVDs3.4 (2.5-4.0cm) FS (%) 29.2 %SV61.0 ml LVEF(%)56.0 (>50%) M-Mode DIMENSIONS Left Atrium(MM)4.30 (2.5-4.0cm)Aortic Root3.16 (2.2-3.7cm) Aortic Valve AoV Peak Osmany.145.4cm/sAoV VTI35.1cm AO Peak GR.8.5mmHgLVOT Peak Osmany.97.7cm/s AO Mean GR.5mmHgAVA (VMAX)2.01cm2 MEG (VTI)2.00cm2 Mitral Valve MV E Tbtkknqi541.0cm/sMV E Peak Gr.82mmHg MV DECEL [id number] A Rjdapmma57.3cm/s MV E Mean Gr.2mmHgE/A Ratio1.3 MV A Mnwreyky188ch Pulmonary Valve PV Peak Ibqmcqfq502.3cm/s Tricuspid Valve TR P. Tnxqoayd573pi/sRAP KQPLNLHP7txSa TR Peak Gr.95wwKkPKMI40reRm Pulmonary Vein S1 Pfuhasxs02.6cm/sD2 Znpjquyq17.6cm/s PVa xlaxwiwq23hvsv LEFT VENTRICLE The left ventricle is normal size. There is mild concentric left ventricular hypertrophy. The left ve ntricular systolic function is normal and the ejection fraction is within normal range. The Ejection Fraction is 55-60%. There is normal LV segmental wall motion. Transmitral Doppler flow pattern is Gra de II-pseudonormal filling dynamics. RIGHT VENTRICLE The right ventricle is normal size. There is normal right ventricular wall thickness. The right ventr icular systolic function is normal. ATRIA The left atrium is borderline dilated. The right atrium size is normal. The interatrial septum is int act with no evidence for an atrial septal defect or patent foramen ovale as noted on 2-D or Doppler i maging. AORTIC VALVE The aortic valve is normal in structure and function. The aortic valve is trileaflet. Doppler and Col or Flow revealed no significant aortic regurgitation. There is no significant aortic valvular stenosi s. MITRAL VALVE The mitral valve is normal in structure and function. There is no evidence of mitral valve prolapse. There is no mitral valve stenosis. Doppler and Color-flow revealed mild mitral regurgitation. TRICUSPID VALVE The tricuspid valve is normal in structure and function. Doppler and Color Flow revealed mild tricusp id regurgitation. The PA pressure was estimated at 36 mmHg. There is no tricuspid valve prolapse or v egetation. There is no tricuspid valve stenosis. PULMONIC VALVE The pulmonic valve is not well visualized. GREAT VESSELS The aortic root is normal in size. The ascending aorta is normal in size. The IVC is normal in size a nd collapses >50% with inspiration. PERICARDIAL EFFUSION There is no evidence of significant pericardial effusion. Critical Notification Critical Value: No <Conclusion> The left ventricle is normal size. The left ventricular systolic function is normal and the ejection fraction is within normal range. The Ejection Fraction is 55-60%. There is mild concentric left ventricular hypertrophy. There is no significant aortic valvular stenosis. Doppler and Color Flow revealed no significant aortic regurgitation. Doppler and Color-flow revealed mild mitral regurgitation. Doppler and Color Flow revealed mild tricuspid regurgitation. The PA pressure was estimated at 36 mmHg. Signed by : Grant Kramer MD Electronically Approved : 09/25/2018 16:11:10
[2018-09-25] MEDS ORDERED: FLECAINIDE ACETATE 50 MG TABLET. PO ONE (16:45)
[2018-09-25] MEDS ORDERED: FLEC100T PO (17:04)
[2018-09-25] MEDS ORDERED: METO-239 PO (17:05)
[2018-09-25 18:09] VITALS: BP 128/67
--- NOTE | 2018-09-25 19:08 | NUR ---
Discharge teaching provided written and verbal to pt,understanding verbalized. Dismissed to home with all belongings accompanied by her Mother. Ambulated to exit with SBA at 1900.
[2018-09-25] MEDS ORDERED: METOPROLOL SUCC 24HR ER 25 MG TAB.ER.24H. PO SCH (21:00)
[2018-09-25] MEDS ORDERED: METOPROLOL SUCCINATE 50 MG PO SCH (21:00)
[2018-09-25] MEDS ORDERED: FLECAINIDE ACETATE 50 MG TABLET. PO SCH (23:00)
== END 2018-09-25 19:00 | disposition home or self-care (01) ==
LOC: ER 18:37 → INTOOBSV 20:55 → 5 NORTH 20:55
PROVIDERS: ADMIT Family Medicine; ATTEND Family Medicine
DX: R00.2 Palpitations (principal); I10 Essential (primary) hypertension; R53.83 Other fatigue; I49.3 Ventricular premature depolarization; F41.9 Anxiety disorder, unspecified; M17.11 Unilateral primary osteoarthritis, right knee; R06.00 Dyspnea, unspecified; E66.01 Morbid (severe) obesity due to excess calories; Z82.3 Family history of stroke; Z68.43 Body mass index [BMI] 50.0-59.9, adult; Z82.49 Family history of ischemic heart disease and other diseases of the circulatory system
CPT/HCPCS: 36415; 71046; 80053; 80061; 81001; 82550; 82553; 83735; 84443; 84484; 85025; 93005; 96360; 96361; C8929; G0378; G0379; J7030; Q9956; 99285-25

== ENCOUNTER 2019-01-31 04:34 | Emergency (ER) | payer BC ==
[~2019-01-31] VITALS: Ht 160 cm; Wt 136.1 kg
[~2019-01-31 04:34] MED LIST changes: +FERR325T14 PO; +FLEC100T PO; +METO-239 PO
[2019-01-31 04:40] VITALS: BP 147/72
--- NOTE | 2019-01-31 05:00 | PHYS DOC ---
Past Medical History Past Medical History: Hypertension, IBS Additional Past Medical Histor: PVCs Past Surgical History: , Knee Replacement Additional Past Surgical Histo: FOOT SX Additional Information: Nonsmoker Alcohol Use: None Drug Use: None Adult General Chief Complaint Chief Complaint: RAPID HEART RATE HPI HPI 58-year-old female presents with report of palpitations and sensation of heart was racing this AM. Reports history of PVCs. Patient reports she was unable to sleep this evening because every time she attempts fall sleep she would have palpitations. These palpitations have been going on for several years. In August she was admitted for observation and underwent stress testing, echocardiogram, and a 24-hour Holter monitor with no cardiac abnormalities found. She follows with Dr. Lindsey and has a follow up appointment next week, but she does not know if she will be able to make the appointment. She denies shortness of breath, diaphoresis, pain, or anxiety. Denies any fever or chills. Denies known trauma. Review of Systems Review of Systems Constitutional: Denies fever or chills Eyes: Denies redness or eye pain HENT: Denies nasal congestion or sore throat Respiratory: Denies cough or shortness of breath Cardiovascular: Denies chest; reports palpitations GI: Denies abdominal pain, nausea, or vomiting : Denies dysuria or hematuria Musculoskeletal: Denies back pain or joint pain Integument: Denies rash or skin lesions Neurologic: Denies headache, focal weakness or sensory changes Complete systems were reviewed and found to be within normal limits, except as documented in this note. Current Medications Current Medications Current Medications Medications (Trade) Dose Ordered Sig/[facility] Start Time Stop Time Status Last Admin Dose Admin Potassium Bicarbonate (Potassium Effervescent Tablet) 40 meq 1X ONCE 01/31/19 06:00 01/31/19 06:01 01/31/19 05:48 40 MEQ Allergies Allergies Allergies Coded Allergies Type Severity Reaction Last Updated Verified No Known Medication Allergies Allergy Unknown 09/25/18 Yes amoxicillin Adverse Reaction Intermediate Diarrhea 02/13/18 Yes Physical Exam Physical Exam Constitutional: Well developed, well nourished, no acute distress, non-toxic appearance, anxious HENT: Normocephalic, atraumatic, oropharynx moist Eyes: Conjunctiva normal, no discharge Neck: Normal range of motion, no tenderness, supple Cardiovascular: Heart rate normal, regular rhythm Lungs & Thorax: Bilateral breath sounds clear to auscultation, no wheezing Abdomen: Soft, no tenderness Skin: Warm, dry, no erythema, no rash Extremities: No tenderness, ROM intact, mild bilateral ankle edema Neurologic: Alert and oriented X 3, no focal deficits noted Psychologic: Affect anxious, judgement normal Current Patient Data Vital Signs Vital Signs Date Time Temp Pulse Resp B/P (MAP) Pulse Ox O2 Delivery O2 Flow Rate FiO2 01/31/19 04:40 98.0 80 16 147/72 (97) 97 Room Air 98.0 Lab Values Laboratory Tests Test 01/31/19 04:55 White Blood Count 6.7 x10^3/uL (4.0-11.0) Red Blood Count 4.00 x10^6/uL (3.50-5.40) Hemoglobin 12.1 g/dL (12.0-15.5) Hematocrit 36.2 % (36.0-47.0) Mean Corpuscular Volume 90 fL (79-100) Mean Corpuscular Hemoglobin 30 pg (25-35) Mean Corpuscular Hemoglobin Concent 33 g/dL (31-37) Red Cell Distribution Width 14.7 % (11.5-14.5) H Platelet Count 333 x10^3/uL (140-400) Neutrophils (%) (Auto) 56 % (31-73) Lymphocytes (%) (Auto) 33 % (24-48) Monocytes (%) (Auto) 9 % (0-9) Eosinophils (%) (Auto) 2 % (0-3) Basophils (%) (Auto) 1 % (0-3) Neutrophils # (Auto) 3.7 x10^3uL (1.8-7.7) Lymphocytes # (Auto) 2.2 x10^3/uL (1.0-4.8) Monocytes # (Auto) 0.6 x10^3/uL (0.0-1.1) Eosinophils # (Auto) 0.1 x10^3/uL (0.0-0.7) Basophils # (Auto) 0.0 x10^3/uL (0.0-0.2) Sodium Level 139 mmol/L (136-145) Potassium Level 3.4 mmol/L (3.5-5.1) L Chloride Level 101 mmol/L (98-107) Carbon Dioxide Level 28 mmol/L (21-32) Anion Gap 10 (6-14) Blood Urea Nitrogen 20 mg/dL (7-20) Creatinine 0.8 mg/dL (0.6-1.0) Estimated GFR (Cockcroft-Gault) 88.8 BUN/Creatinine Ratio 25 (6-20) H Glucose Level 109 mg/dL (70-99) H Calcium Level 9.8 mg/dL (8.5-10.1) Magnesium Level 1.9 mg/dL (1.8-2.4) Total Bilirubin 0.4 mg/dL (0.2-1.0) Aspartate Amino Transferase (AST) 17 U/L (15-37) Alanine Aminotransferase (ALT) 19 U/L (14-59) Alkaline Phosphatase 75 U/L (46-116) Total Protein 8.3 g/dL (6.4-8.2) H Albumin 3.8 g/dL (3.4-5.0) Albumin/Globulin Ratio 0.8 (1.0-1.7) L Thyroid Stimulating Hormone (TSH) 3.250 uIU/mL (0.358-3.74) Free Thyroxine 1.06 ng/dL (0.76-1.46) Free Triiodothyronine (T3) pg/mL 2.98 pg/mL (2.18-3.98) Laboratory Tests 01/31/19 04:55 Laboratory Tests 01/31/19 04:55 EKG EKG 01/31/19 at 0514: Normal sinus rhythm at [address] segment elevation. Ventricular premature complex. 01/31/19 at 0515: Normal sinus rhythm at [address] segment elevation. [] Radiology/Procedures Radiology/Procedures [] Course & Med Decision Making Course & Med Decision Making Pertinent Lab studies reviewed. (See chart for details) Patient presents with report of palpitations and sensation of her heart racing. EKG upon arrival with HR in 70s. Labs obtained and posted to chart. She was found to have hypokalemia at 3.4 that was replaced and she was given information to increase potassium in diet. She has an appointment to follow up with Dr. Henriquez (cardiology) this week. Patient stable for discharge with outpatient follow-up with PCP/Cardiology. Discussed findings and plan with patient and family, who acknowledge understanding and agreement. Dragon Disclaimer Dragon Disclaimer This electronic medical record was generated, in whole or in part, using a voice recognition dictation system. Departure Departure Impression: Primary Impression: Heart palpitations Additional Impression: Hypokalemia Disposition: HOME, SELF-CARE Condition: STABLE Referrals: ALEKSEY NUNEZ (PCP) ADDY FUNEZ MD Patient Instructions: Hypokalemia-Brief, Palpitations, Hotw-rh-Diyx, Potassium Content of Foods Problem Qualifiers YANETH MARTINEZ DO Jan 31, 2019 05:00
[2019-01-31 05:07] LABS: BASO % 1 % (0-3); EOS # 0.1 x10^3/uL (0.0-0.7); EOS % 2 % (0-3); HEMATOCRIT 36.2 % (36.0-47.0); HEMOGLOBIN 12.1 g/dL (12.0-15.5); LYMPH # 2.2 x10^3/uL (1.0-4.8); LYMPH % 33 % (24-48); MEAN CORPUSCULAR HEMOGLOBIN 30 pg (25-35); MEAN CORPUSCULAR HGB CONC 33 g/dL (31-37); MEAN CORPUSCULAR VOLUME 90 fL (79-100); MONO # 0.6 x10^3/uL (0.0-1.1); MONO % 9 % (0-9); NEUT # 3.7 x10^3uL (1.8-7.7); NEUT % 56 % (31-73); PLATELET COUNT 333 x10^3/uL (140-400); RED CELL DISTRIBUTION WIDTH 14.7 % (11.5-14.5); WHITE BLOOD COUNT 6.7 x10^3/uL (4.0-11.0)
[2019-01-31 05:21] LABS: CALCIUM 9.8 mg/dL (8.5-10.1); CREATININE 0.8 mg/dL (0.6-1.0); GFR 88.8; POTASSIUM 3.4 mmol/L (3.5-5.1)
[2019-01-31 05:26] LABS: ALBUMIN 3.8 g/dL (3.4-5.0); ALBUMIN/GLOBULIN RATIO 0.8 (1.0-1.7); MAGNESIUM 1.9 mg/dL (1.8-2.4); TOTAL BILIRUBIN 0.4 mg/dL (0.2-1.0); TOTAL PROTEIN 8.3 g/dL (6.4-8.2)
[2019-01-31 05:37] LABS: FREE T4 1.06 ng/dL (0.76-1.46); THYROID STIM HORMONE (TSH) 3.25 uIU/mL (0.358-3.74)
[2019-01-31] MEDS ORDERED: POTASSIUM BICARB 20 MEQ EFFERVESCENT TABLET. PO ONE (06:00)
[2019-01-31] MEDS ORDERED: LORazepam 0.5 MG TABLET ONE (06:05)
[2019-01-31] MEDS ORDERED: LORazepam 0.5 MG TABLET PO ONE (06:15)
--- NOTE | 2019-02-01 08:21 | EKG ---
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
--- NOTE | 2019-02-01 08:27 | EKG ---
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
== END 2019-01-31 06:10 | disposition home or self-care (01) ==
LOC: ER 04:34
DX: R00.2 Palpitations (principal); E87.6 Hypokalemia; I10 Essential (primary) hypertension; Z98.890 Other specified postprocedural states; Z96.659 Presence of unspecified artificial knee joint; Z88.1 Allergy status to other antibiotic agents
CPT/HCPCS: 36415; 80053; 83735; 84439; 84443; 84481; 85025; 93005; 99285-25

== ENCOUNTER 2019-09-03 20:12 | Emergency (ER) | payer BC ==
[~2019-09-03] VITALS: Ht 160 cm; Wt 136.6 kg
--- NOTE | 2019-09-03 20:49 | PHYS DOC ---
Past Medical History Past Medical History: Hypertension, IBS Additional Past Medical Histor: PVCs Past Surgical History: , Knee Replacement Additional Past Surgical Histo: FOOT SX Smoking Status: Never Smoker Alcohol Use: None Drug Use: None Adult General Chief Complaint Chief Complaint: Palpitations [facility] HPI 59-year-old female presents to the emergency Department complaints of palpitations, chest pain. Patient has underlying history of hypertension, she is currently seeing cardiology for palpitations and has a Holter monitor in place. Patient called EMS tonight as her heart was racing for approximately 10-15 minutes. Patient describes shortness of breath, she denies any lightheadedness or dizziness associated with palpitations however was persistent, states it was longer than usual. EMS was called, patient's heart rate was in the 130s, sinus tachycardia improved with Valsalva maneuvers. She is having some PVCs on the monitor. Patient denies any abdominal pain, nausea, vomiting, headache or visual change. Nothing makes her symptoms worse, nothing makes her symptoms better. Review of Systems Review of Systems Constitutional: Denies fever or chills [] Respiratory: Denies cough or shortness of breath [] Cardiovascular: No additional information not addressed in HPI [] GI: Denies abdominal pain, nausea, vomiting, bloody stools or diarrhea [] : Denies dysuria or hematuria [] Musculoskeletal: Denies back pain or joint pain [] Neurologic: Denies headache, focal weakness or sensory changes [] All other systems were reviewed and found to be within normal limits, except as documented in this note. Current Medications Current Medications Current Medications Medications (Trade) Dose Ordered Sig/[facility] Start Time Stop Time Status Last Admin Dose Admin Aspirin (Children'S Aspirin) 324 mg 1X ONCE 09/03/19 21:15 09/03/19 21:16 DC 09/03/19 20:57 324 MG Allergies Allergies Allergies Coded Allergies Type Severity Reaction Last Updated Verified No Known Medication Allergies Allergy Unknown 09/25/18 Yes amoxicillin Adverse Reaction Intermediate Diarrhea 02/13/18 Yes Physical Exam Physical Exam Constitutional: Well developed, well nourished, no acute distress, non-toxic appearance. [] HENT: Normocephalic, atraumatic, bilateral external ears normal, oropharynx moist, no oral exudates, nose normal. [] Cardiovascular:Heart rate regular rhythm, no murmur [] Lungs & Thorax: Bilateral breath sounds clear to auscultation [] Abdomen: Bowel sounds normal, soft, no tenderness, no masses, no pulsatile masses. [] Skin: Warm, dry, no erythema, no rash. [] Back: No tenderness, no CVA tenderness. [] Extremities: No tenderness, no edema. [] Neurologic: Alert and oriented X 3, no focal deficits noted. [] Psychologic: Affect normal, judgement normal, mood normal. [] Current Patient Data Vital Signs Vital Signs Date Time Temp Pulse Resp B/P (MAP) Pulse Ox O2 Delivery O2 Flow Rate FiO2 09/03/19 21:45 68 16 129/68 (88) 98 Room Air 09/03/19 20:15 98.3 98.3 Lab Values Laboratory Tests Test 09/03/19 20:56 White Blood Count 6.5 x10^3/uL (4.0-11.0) Red Blood Count 4.18 x10^6/uL (3.50-5.40) Hemoglobin 12.4 g/dL (12.0-15.5) Hematocrit 37.5 % (36.0-47.0) Mean Corpuscular Volume 90 fL (79-100) Mean Corpuscular Hemoglobin 30 pg (25-35) Mean Corpuscular Hemoglobin Concent 33 g/dL (31-37) Red Cell Distribution Width 14.8 % (11.5-14.5) H Platelet Count 340 x10^3/uL (140-400) Neutrophils (%) (Auto) 59 % (31-73) Lymphocytes (%) (Auto) 28 % (24-48) Monocytes (%) (Auto) 11 % (0-9) H Eosinophils (%) (Auto) 2 % (0-3) Basophils (%) (Auto) 1 % (0-3) Neutrophils # (Auto) 3.8 x10^3/uL (1.8-7.7) Lymphocytes # (Auto) 1.8 x10^3/uL (1.0-4.8) Monocytes # (Auto) 0.7 x10^3/uL (0.0-1.1) Eosinophils # (Auto) 0.1 x10^3/uL (0.0-0.7) Basophils # (Auto) 0.0 x10^3/uL (0.0-0.2) Sodium Level 141 mmol/L (136-145) Potassium Level 3.8 mmol/L (3.5-5.1) Chloride Level 101 mmol/L (98-107) Carbon Dioxide Level 31 mmol/L (21-32) Anion Gap 9 (6-14) Blood Urea Nitrogen 13 mg/dL (7-20) Creatinine 0.7 mg/dL (0.6-1.0) Estimated GFR (Cockcroft-Gault) 103.3 BUN/Creatinine Ratio 19 (6-20) Glucose Level 105 mg/dL (70-99) H Calcium Level 9.6 mg/dL (8.5-10.1) Magnesium Level 1.9 mg/dL (1.8-2.4) Total Bilirubin 0.2 mg/dL (0.2-1.0) Aspartate Amino Transferase (AST) 23 U/L (15-37) Alanine Aminotransferase (ALT) 18 U/L (14-59) Alkaline Phosphatase 85 U/L (46-116) Creatine Kinase 127 U/L (26-192) Troponin I Quantitative < 0.017 ng/mL (0.000-0.055) Total Protein 8.1 g/dL (6.4-8.2) Albumin 3.8 g/dL (3.4-5.0) Albumin/Globulin Ratio 0.9 (1.0-1.7) L Laboratory Tests 09/03/19 20:56 Laboratory Tests 09/03/19 20:56 EKG EKG EKG reviewed interpretation time 2019, normal sinus rhythm, normal axis, no evidence of ST elevation MO rate 75 occasional PVC appreciated on bedside monitor[] Radiology/Procedures Radiology/Procedures CXR wet read without acute findings[] Course & Med Decision Making Course & Med Decision Making Pertinent Labs and Imaging studies reviewed. (See chart for details) []59-year-old female presents to the emergency Department complaints of palpitations, chest pain. Patient has underlying history of hypertension, she is currently seeing cardiology for palpitations and has a Holter monitor in place. Patient called EMS tonight as her heart was racing for approximately 10-15 minutes. Patient describes shortness of breath, she denies any lightheadedness or dizziness associated with palpitations however was persistent, states it was longer than usual. EMS was called, patient's heart rate was in the 130s, sinus tachycardia improved with Valsalva maneuvers. She is having some PVCs on the monitor. Patient denies any abdominal pain, nausea, vomiting, headache or visual change. Nothing makes her symptoms worse, nothing makes her symptoms better. Labs/Imaging reviewed Chest without acute findings Mag/Potassium - within normal limits Trop negative EKG reviewed Recommend dc home and follow up with Cardiology as scheduled Reassurance provided Mariela Disclaimer Dragon Disclaimer This electronic medical record was generated, in whole or in part, using a voice recognition dictation system. Departure Departure Impression: Primary Impression: Palpitations Disposition: 01 HOME, SELF-CARE Condition: STABLE Referrals: ALEKSEY NUNEZ (PCP) Patient Instructions: Palpitations, [id number] Additional Instructions: Recommend follow up with PCP 3 - 5 days Return to the ER with worsening symptoms, intractable pain, fever, altered mental status Tylenol/Motrin as needed for pain Recommend following up with Cardiology as scheduled Ok to take full alprazolam 0.25mg as scheduled Take new medication per cardiology as recommended Vagel maneuvers discussed and ice bath to face discussed as well - these may help if you experience tachycardia (fast heart rate) again VANESA MONTE MD Sep 03, 2019 20:49
[2019-09-03 21:04] LABS: BASO % 1 % (0-3); EOS # 0.1 x10^3/uL (0.0-0.7); EOS % 2 % (0-3); HEMATOCRIT 37.5 % (36.0-47.0); HEMOGLOBIN 12.4 g/dL (12.0-15.5); LYMPH # 1.8 x10^3/uL (1.0-4.8); LYMPH % 28 % (24-48); MEAN CORPUSCULAR HEMOGLOBIN 30 pg (25-35); MEAN CORPUSCULAR HGB CONC 33 g/dL (31-37); MEAN CORPUSCULAR VOLUME 90 fL (79-100); MONO # 0.7 x10^3/uL (0.0-1.1); MONO % 11 % (0-9); NEUT # 3.8 x10^3/uL (1.8-7.7); NEUT % 59 % (31-73); PLATELET COUNT 340 x10^3/uL (140-400); RED BLOOD COUNT 4.18 x10^6/uL (3.50-5.40); RED CELL DISTRIBUTION WIDTH 14.8 % (11.5-14.5); WHITE BLOOD COUNT 6.5 x10^3/uL (4.0-11.0)
[2019-09-03 21:14] LABS: CALCIUM 9.6 mg/dL (8.5-10.1); CREATININE 0.7 mg/dL (0.6-1.0); GFR 103.3; POTASSIUM 3.8 mmol/L (3.5-5.1)
[2019-09-03] MEDS ORDERED: ASPIRIN CHEWABLE 81 MG TABLET. PO ONE (21:15)
[2019-09-03 21:21] LABS: ALBUMIN 3.8 g/dL (3.4-5.0); ALBUMIN/GLOBULIN RATIO 0.9 (1.0-1.7); MAGNESIUM 1.9 mg/dL (1.8-2.4); TOTAL BILIRUBIN 0.2 mg/dL (0.2-1.0); TOTAL PROTEIN 8.1 g/dL (6.4-8.2)
[2019-09-03 21:45] VITALS: BP 129/68
--- NOTE | 2019-09-03 22:22 | RAD ---
Exam: Chest one view INDICATION: Palpitations TECHNIQUE: Frontal view of the chest Comparisons: None FINDINGS: The cardiomediastinal silhouette and pulmonary vessels are within normal limits. The lung and pleural spaces are clear. IMPRESSION: No acute cardiopulmonary process. Electronically signed by: Louis Mendez MD (09/03/2019 10:20 PM) [id number]
--- NOTE | 2019-09-06 06:13 | EKG ---
[facility] [address] [place] [address] Test Date: 2019-09-03 Test Time: 20:20:59 Pat Name: SUZETTE BUSTOS Department: Room: Gender: F Senior [employer]er: : 1960 Requested By: VANESA MONTE Order Number: [id number] Reading MD: Measurements Intervals [place] Rate: 74 P: 39 IN: 206 QRS: 11 QRSD: 84 T: 2 QT: 408 QTc: 458 Interpretive Statements SINUS RHYTHM LEFT ATRIAL ABNORMALITY NON SPECIFIC T ABNORMALITY ABNORMAL ECG No previous ECG available for comparison
== END 2019-09-03 22:00 | disposition home or self-care (01) ==
LOC: ER 20:12
DX: R00.2 Palpitations (principal); R07.89 Other chest pain; R06.02 Shortness of breath; I10 Essential (primary) hypertension; K58.9 Irritable bowel syndrome, unspecified; Z98.890 Other specified postprocedural states; Z79.82 Long term (current) use of aspirin; Z88.1 Allergy status to other antibiotic agents
CPT/HCPCS: 36415; 71045; 80053; 82550; 83735; 84484; 85025; 93005; 99285